=== PATIENT | female | born 1970 | race Two or more races ===

== ENCOUNTER 2019-04-30 14:32 | Emergency (ER) | payer MEDICAID ==
[~2019-04-30] VITALS: Ht 165.1 cm; Wt 79.4 kg
[2019-04-30] MEDS ORDERED: NKM (14:40)
[2019-04-30] MEDS ORDERED: Meclizine 25mg tab ORAL ONE (14:45)
[2019-04-30] MEDS ORDERED: D5NS 1,000 ML IV ONE (14:45)
[2019-04-30] MEDS ORDERED: Mylanta II UD 30ml ORAL ONE (14:45)
--- NOTE | 2019-04-30 15:12 | Emergency Room Report ---
History of Present Illness General Chief Complaint: Dizziness Source: Patient Present Illness HPI 48-year-old female, no past medical history presents with dizziness, she states the room is spinning when she moves her head, ongoing for 2 days aggravated with movement alleviated with rest she denies any chest pain shortness of breath , she does endorse some nausea, vomiting, no abdominal pain no shortness of breath, patient presents for evaluation. Severity is severe symptoms are intermittent lasting minutes. Allergies: Coded Allergies: No Known Allergies (Unverified , 04/30/19) Patient History Past Medical History: see triage record Reviewed Nursing Documentation: PMH: Agreed; PSxH: Agreed Nursing Documentation-PMH Past Medical History: No Stated History Review of Systems All Other Systems: negative except mentioned in HPI Physical Exam Vital Signs Date Time Temp Pulse Resp B/P (MAP) Pulse Ox O2 Delivery O2 Flow Rate FiO2 04/30/19 14:37 98.4 105 23 121/84 (96) 96 Room Air Sp02 EP Interpretation: reviewed, normal General Appearance: well appearing, no apparent distress, alert Head: normocephalic, atraumatic Eyes: bilateral eye PERRL, bilateral eye EOMI ENT: uvula midline, moist mucus membranes Neck: supple, thyroid normal, supple/symm/no masses Respiratory: lungs clear, no respiratory distress, no retraction, no accessory muscle use Cardiovascular #1: normal peripheral pulses, regular rate, rhythm, no edema, no gallop, no murmur Gastrointestinal: non tender, soft, no guarding, no rebound Musculoskeletal: normal inspection Neurologic: alert, oriented x3, tube and rod straightener III-XII nml as tested, motor strength/tone normal, cerebellar normal, normal gait, speech normal, no pronator, other - [id number] testing intact, patient with fatigable nystagmus to the right, reproducible by moving her head Psychiatric: mood/affect normal Skin: no rash, warm/dry Medical Decision Making Diagnostic Impression: Primary Impression: Dizziness Additional Impression: Diabetes mellitus Qualified Codes: E11.9 - Type 2 diabetes mellitus without complications ER Course 48-year-old female presents with dizziness lightheadedness, differential diagnosis includes vertigo, presyncope, dehydration Patient found to have new onset diabetes, with neuropathy Patient without evidence of ketoacidosis Patient given insulin in the ED Patient given hydration, fluid resuscitation, will start patient on metformin as an outpatient Disposition home with return precautions Laboratory Tests Test 04/30/19 15:10 White Blood Count 10.3 K/UL (4.8-10.8) Red Blood Count 5.01 M/UL (4.20-5.40) Hemoglobin 15.2 G/DL (12.0-16.0) Hematocrit 42.5 % (37.0-47.0) Mean Corpuscular Volume 85 FL (80-99) Mean Corpuscular Hemoglobin 30.3 PG (27.0-31.0) Mean Corpuscular Hemoglobin Concent 35.7 G/DL (32.0-36.0) Red Cell Distribution Width 10.9 % (11.6-14.8) L Platelet Count 218 K/UL (150-450) Mean Platelet Volume 7.6 FL (6.5-10.1) Neutrophils (%) (Auto) 64.5 % (45.0-75.0) Lymphocytes (%) (Auto) 28.0 % (20.0-45.0) Monocytes (%) (Auto) 5.2 % (1.0-10.0) Eosinophils (%) (Auto) 1.6 % (0.0-3.0) Basophils (%) (Auto) 0.7 % (0.0-2.0) Urine Color Pale yellow Urine Appearance Clear Urine pH 6 (4.5-8.0) Urine Specific [place] 1.005 (1.005-1.035) Urine Protein Negative (NEGATIVE) Urine Glucose (UA) 4+ (NEGATIVE) H Urine Ketones Negative (NEGATIVE) Urine Blood 1+ (NEGATIVE) H Urine Nitrite Negative (NEGATIVE) Urine Bilirubin Negative (NEGATIVE) Urine Urobilinogen Normal MG/DL (0.0-1.0) Urine Leukocyte Esterase Negative (NEGATIVE) Urine RBC 0-2 /HPF (0 - 2) Urine WBC 2-4 /HPF (0 - 2) Urine Squamous Epithelial Cells Few /LPF (NONE/OCC) Urine Bacteria Few /HPF (NONE) Urine HCG, Qualitative Negative (NEGATIVE) Sodium Level 130 MMOL/L (136-145) L Potassium Level 4.0 MMOL/L (3.5-5.1) Chloride Level 96 MMOL/L (98-107) L Carbon Dioxide Level 23 MMOL/L (21-32) Anion Gap 11 mmol/L (5-15) Blood Urea Nitrogen 12 mg/dL (7-18) Creatinine 1.0 MG/DL (0.55-1.30) Estimate Glomerular Filtration Rate 59.7 mL/min (>60) Glucose Level 626 MG/DL (74-106) *H Calcium Level 9.3 MG/DL (8.5-10.1) Total Bilirubin 0.6 MG/DL (0.2-1.0) Aspartate Amino Transferase (AST) 16 U/L (15-37) Alanine Aminotransferase (ALT) 28 U/L (12-78) Alkaline Phosphatase 129 U/L (46-116) H Troponin I 0.000 ng/mL (0.000-0.056) Total Protein 7.7 G/DL (6.4-8.2) Albumin 3.6 G/DL (3.4-5.0) Globulin 4.1 g/dL Albumin/Globulin Ratio 0.9 (1.0-2.7) L Lipase 164 U/L (73-393) Human Chorionic Gonadotropin, Quant 1 mIU/mL (1-6) Acetone Level Negative (NEGATIVE) EKG Diagnostic Results EKG Time: 14:48 EP Interpretation: NSR, rate 95, QTc 424, no acute ST elevations, normal axis Rhythm Strip Diag. Results Rhythm Strip Time: 15:11 EP Interpretation: yes Rate: 95 Rhythm: NSR, no PVC's, no ectopy Chest X-Ray Diagnostic Results Chest X-Ray Diagnostic Results : Chest X-Ray Ordered: Yes # of Views/Limited/Complete: 1 View Indication: Other - Dizziness EP Interpretation: Yes Interpretation: no consolidation, no effusion, no pneumothorax, no acute cardiopulmonary disease Impression: No acute disease Electronically Signed by: Price Meehan MD CT/MRI/US Diagnostic Results CT/MRI/US Diagnostic Results : Impression Procedure: CT Head no Contrast EXAM: CT Head Without Intravenous Contrast CLINICAL HISTORY: DIZZY TECHNIQUE: Axial computed tomography images of the head brain without intravenous contrast. CTDI is 70.38 mGy and DLP is 1386 mGy-cm. One or more of the following dose reduction techniques were used: automated exposure control, adjustment of the mA and or kV according to patient size, use of iterative reconstruction technique. COMPARISON: No relevant prior studies available. FINDINGS: Brain: No intracranial hemorrhage or mass effect. No clear acute large vessel territorial infarct. Ventricles: Unremarkable. No ventriculomegaly. Bones joints: Unremarkable. No acute fracture. Soft tissues: Unremarkable. Sinuses: Left maxillary sinusitis. Mastoid air cells: Unremarkable as visualized. No mastoid effusion. IMPRESSION: Left maxillary sinusitis. Otherwise unremarkable exam. Dictated By: Price Galeano MD Electronically Signed By: Price Galeano MD Signed Date/Time 04/30/19 1556 CC: Price Meehan MD Last Vital Signs Date Time Temp Pulse Resp B/P (MAP) Pulse Ox O2 Delivery O2 Flow Rate FiO2 04/30/19 14:37 98.4 105 23 121/84 (96) 96 Room Air Disposition: HOME, SELF-CARE Condition: Stable Scripts Meclizine Hcl* (MECLIZINE*) 25 Mg Tablet 25 MG ORAL THREE TIMES A DAY PRN for for dizziness, #30 TAB Prov: Price Meehan MD 04/30/19 Metformin Hcl* (METFORMIN HCL*) 500 Mg Tablet 500 MG ORAL TWICE A DAY, #60 TAB Prov: Price Meehan MD 04/30/19 Referrals: [facility]. [facility] Patient Instructions: Diabetes Mellitus and Food, Diabetes and Exercise, Vertigo Additional Instructions: The patient was provided with discharge instructions, notified to follow-up with a primary care doctor and or specialist in the next 24-48 hours, and to return to the ED if they have worsening of their symptoms. Please note that this report is being documented using DRAGON technology. This can lead to erroneous entry secondary to incorrect interpretation by the dictating instrument. FOLLOW-UP WITH PCP IN 24-48 HOURS Price Meehan MD Apr 30, 2019 15:12
--- NOTE | 2019-04-30 15:20 | Diagnostic Imaging Report ---
EXAM: XR Chest, 1 View CLINICAL HISTORY: WEAK TECHNIQUE: Frontal view of the chest. COMPARISON: No relevant prior studies available. FINDINGS: Lungs: Unremarkable. No consolidation. Pleural space: Unremarkable. No pneumothorax. Heart: Unremarkable. No cardiomegaly. Mediastinum: Unremarkable. Bones joints: Minimal thoracic dextrocurvature. IMPRESSION: No evidence of acute pulmonary disease.
--- NOTE | 2019-04-30 15:20 | NUR ---
ED Nurse Note: [place] done blood and urine sent to lab pt down to ct
[2019-04-30 15:31] LABS: BASOPHILS % (AUTO) 0.7 % (0.0-2.0); EOSINOPHILS % (AUTO) 1.6 % (0.0-3.0); HEMATOCRIT 42.5 % (37.0-47.0); HEMOGLOBIN 15.2 G/DL (12.0-16.0); MEAN CORPUSCULAR VOLUME 85 FL (80-99); MONOCYTES % (AUTO) 5.2 % (1.0-10.0); NEUTROPHILS % (AUTO) 64.5 % (45.0-75.0); PLATELET COUNT 218 K/UL (150-450); RED BLOOD COUNT 5.01 M/UL (4.20-5.40); RED CELL DISTRIBUTION WIDTH 10.9 % (11.6-14.8); WHITE BLOOD COUNT 10.3 K/UL (4.8-10.8)
[2019-04-30 15:36] LABS: APPEARANCE,URINE CLEAR; BILIRUBIN, URINE NEGATIVE (NEGATIVE); COLOR,URINE PALE YELLOW; GLUCOSE, URINE (UA) 4+ (NEGATIVE); KETONES,URINE NEGATIVE (NEGATIVE); LEUKOCYTE ESTERASE ,URINE NEGATIVE (NEGATIVE); NITRITE,URINE NEGATIVE (NEGATIVE); PH,URINE 6 (4.5-8.0); PROTEIN,URINE NEGATIVE (NEGATIVE); UROBILINOGEN,URINE NORMAL MG/DL (0.0-1.0)
[2019-04-30 15:48] LABS: ALANINE AMINOTRANSFERASE 28 U/L (12-78); ALBUMIN 3.6 G/DL (3.4-5.0); ALBUMIN/GLOBULIN RATIO 0.9 (1.0-2.7); ALKALINE PHOSPHATASE 129 U/L (46-116); ANION GAP 11 mmol/L (5-15); ASPARTATE AMINO TRANSFERASE 16 U/L (15-37); BILIRUBIN,TOTAL 0.6 MG/DL (0.2-1.0); BLOOD UREA NITROGEN 12 mg/dL (7-18); CALCIUM 9.3 MG/DL (8.5-10.1); CARBON DIOXIDE 23 MMOL/L (21-32); CHLORIDE 96 MMOL/L (98-107); SODIUM 130 MMOL/L (136-145)
--- NOTE | 2019-04-30 15:57 | Diagnostic Imaging Report ---
EXAM: CT Head Without Intravenous Contrast CLINICAL HISTORY: DIZZY TECHNIQUE: Axial computed tomography images of the head brain without intravenous contrast. CTDI is 70.38 mGy and DLP is 1386 mGy-cm. One or more of the following dose reduction techniques were used: automated exposure control, adjustment of the mA and or kV according to patient size, use of iterative reconstruction technique. COMPARISON: No relevant prior studies available. FINDINGS: Brain: No intracranial hemorrhage or mass effect. No clear acute large vessel territorial infarct. Ventricles: Unremarkable. No ventriculomegaly. Bones joints: Unremarkable. No acute fracture. Soft tissues: Unremarkable. Sinuses: Left maxillary sinusitis. Mastoid air cells: Unremarkable as visualized. No mastoid effusion. IMPRESSION: Left maxillary sinusitis. Otherwise unremarkable exam.
[2019-04-30] MEDS ORDERED: Insulin Human Regular 100units/ml 3ml IV ONE (16:00)
[2019-04-30] MEDS ORDERED: METFORMIN HCL500 M1 ORAL (16:12)
[2019-04-30] MEDS ORDERED: MECLIZINE HCL25 MG ORAL (16:30)
[2019-04-30 17:45] VITALS: BP 118/85
--- NOTE | 2019-04-30 17:47 | NUR ---
ED Nurse Note: meds well tolerated no reactions noted . Pt provided with food per ERMD.
--- NOTE | 2019-04-30 17:48 | NUR ---
ED Nurse Note: Pt cleared by health care Provider for discharge. DC instructions/prescription was given and explained to pt and verbalized understanding of teachings. All medical deviecs such as ID band removed. Pt is AAO x4, ambulatory and left with all personal belongings.
[2019-04-30 17:55] VITALS: BP 118/85
== END 2019-04-30 17:58 | disposition home or self-care (01) ==
LOC: EMR 15:00
DX: R42 Dizziness and giddiness (principal); E11.40 Type 2 diabetes mellitus with diabetic neuropathy, unspecified; J32.0 Chronic maxillary sinusitis
CPT/HCPCS: 36415; 70450; 71045; 80053; 81003; 81025; 82009; 82962; 83690; 84484; 84702; 85025; 96361; 96365; 96375; J1815; J2405; J7040; Z7502; 99284; J8499